=== PATIENT | female | born 1985 | race Caucasian/White ===

== ENCOUNTER 2017-09-08 15:06 | Emergency (ER) | payer MEDICAID ==
[~2017-09-08] VITALS: Ht 177.8 cm; Wt 90.0 kg
[~2017-09-08 15:06] MED LIST: IBUP800T23 PO; MMW SWISH-SWAL
[2017-09-08 15:38] VITALS: BP 139/85; PULSE 68; RESP 16; TEMP 98.9; O2SAT 97
--- NOTE | 2017-09-08 16:19 | PD ---
HPI Chief Complaint: Oral / Dental Pain or Problem Time Seen by Provider: 16:11 Travel History International Travel<30 days: No Contact w/Intl Traveler<30days: No Traveled to known affect area: No History of Present Illness HPI 32-year-old female presents emergency department for left third molar and gingival pain. States the pain started yesterday morning. Denies inciting events. State she does have a history of dental abscesses where she received antibiotics. States she tried to get in with her dentist today however she was unable to. PFSH Past Medical History Arthritis: Yes (OA, POSSIBLE RA) Autoimmune Disease: Yes Diminished Hearing: No ?: Not LMP: 08/20/17 : 2 Para: 2 Tubal Ligation: Yes Past Surgical History Section: Yes (X2) Social History Alcohol Use: No Tobacco Use: No Substance Use: No Allergies-Medications (Allergen,Severity, Reaction): Coded Allergies: No Known Allergies (Verified , 09/08/17) Reported Meds & Prescriptions Reported Meds & Active Scripts Active Hydrocodone-Acetaminophen 5-325 mg Tab 1 Tab PO Q6H PRN 3 Days Clindamycin (Clindamycin HCl) 300 Mg Cap 300 Mg PO Q6H 7 Days Review of Systems Except as stated in HPI: all other systems reviewed are Neg Physical Exam Narrative GENERAL: Well-nourished, well-developed patient tearful SKIN: Focused skin assessment warm/dry. HEAD: Normocephalic. EYES: No scleral icterus. No injection or drainage. MOUTH: Mucous membranes moist, no lesions, tongue and gums appear normal. Third molar with caries and erosion. Tender to palpation of the gingiva surrounding the molar, without fluctuance NECK: Supple, trachea midline. No JVD or lymphadenopathy. Tender to palpation of the left SCM CARDIOVASCULAR: Regular rate and rhythm without murmurs, gallops, or rubs. RESPIRATORY: Breath sounds equal bilaterally. No accessory muscle use. MUSCULOSKELETAL: No cyanosis, or edema. BACK: Nontender without obvious deformity. No CVA tenderness. Data Data Last Documented VS Vital Signs Date Time Temp Pulse Resp B/P (MAP) Pulse Ox O2 Delivery O2 Flow Rate FiO2 09/08/17 15:38 98.9 68 16 139/85 (103) 97 Orders Orders Ed Discharge Order (09/08/17 16:22) MDM Medical Decision Making Medical Screen Exam Complete: Yes Emergency Medical Condition: Yes Differential Diagnosis Dental caries versus abscess versus gingivitis Narrative Course 31-year-old female in moderate distress complaining of left third molar and gingival pain for 1 day. States she tried to see a dentist however was unable to get in. Patient denies fever or chills, nuchal rigidity. Physical exam demonstrated tooth ecchymotic, fractured and slightly displaced. No fluctuance or erythema along gingiva. Prescribed Clindamycin and hydrocodone. EFORSCE checked and did not show any pain medication prescriptions. Pt understand to use pain medication sparingly and follow up with dentist within 2 days. Diagnosis Primary Impression: Tooth abscess Referrals: Dentist Primary Care Physician Additional Instructions: Return to dentist as soon as possible. Take all antibiotics as prescribed Take pain medication sparingly Scripts Hydrocodone-Acetaminophen (Hydrocodone-Acetaminophen) 5-325 mg Tab 1 TAB PO Q6H Y for PAIN for 3 Days, #10 TAB 0 Refills Prov: Luis Angel Henry MD 09/08/17 Clindamycin (Clindamycin) 300 Mg Cap 300 MG PO Q6H for Infection for 7 Days, #28 CAP 0 Refills Prov: Luis Angel Henry MD 09/08/17 Disposition: 01 DISCHARGE HOME Condition: Stable Brigette Dillon Sep 08, 2017 16:19
[2017-09-08] MEDS ORDERED: CLIN1CAP6 PO (16:20)
[2017-09-08] MEDS ORDERED: HYDR-3516 PO (16:22)
== END 2017-09-08 16:38 | disposition home or self-care (01) ==
LOC: PHED 15:06 → PHEFT 16:38
DX: K04.7 Periapical abscess without sinus (principal)
CPT/HCPCS: 99284